=== PATIENT | female | born 1970 | race Caucasian/White ===

== ENCOUNTER 2022-09-18 09:34 | Outpatient (CLI) | payer BC, SELFPAY | END 2022-09-18 09:35 | disposition home or self-care (01) | PROVIDERS: Visit Provider Family Medicine | DX: R50.9 Fever, unspecified (principal); A69.20 Lyme disease, unspecified | CPT/HCPCS: 86618 ==

== ENCOUNTER 2022-09-20 16:17 | Emergency (ER) | payer BC, SELFPAY ==
[2022-09-20] VITALS (8 sets, daily range): BP systolic 127–138; BP diastolic 79–92; PULSE 82–92; RESP 18; TEMP 36.7; O2SAT 96–98; BMI 18.9
--- NOTE | 2022-09-20 16:59 | ED.GENADULT ---
HPI - General Adult General Chief complaint: Head Injury/Pain Stated complaint: Vomiting Time Seen by Provider: 09/20/22 16:22 History of Present Illness HPI narrative: This 52-year-old female comes in reporting headache with nausea and vomiting. She states that these symptoms started a few days ago just after starting to take doxycycline. She went into urgent care because there was a bull's-eye rash that was suspicious for Lyme disease. She does not know of any tick bite but states that she was feeling flu like symptoms. Lab results for Borrelia are pending. The patient has started on doxycycline but states that she is persistently nauseated and has not taken much food or drink. She also now has a headache. She has not been able to take any doxycycline today. Related Data Home Medications Medication Instructions Recorded Confirmed multivitamin 1 tab PO QAM 03/05/22 09/18/22 Previous Rx's Medication Instructions Recorded doxycycline monohydrate 100 mg 100 mg PO BID 14 days #28 caps 09/18/22 capsule Allergies Allergy/AdvReac Type Severity Reaction Status Date / Time penicillin G Allergy Intermediate Rash Verified 03/05/22 10:25 sulfamethazine Allergy Intermediate Rash Verified 03/05/22 10:25 Review of Systems Status of ROS: Reports: 10 or more systems reviewed and unremarkable except as noted in History and below Narrative: Constitutional: No fevers, no weight gain or loss. Eyes: No discharge. No vision changes. HENT: No congestion, no sore throat, no ear pain. Cardiovascular: No chest pain, no palpitations. Respiratory: No shortness of breath, no wheezes, no cough. Gastrointestinal: No abdominal pain, no diarrhea. Nausea and vomiting. Genitourinary: No dysuria, no hematuria. Musculoskeletal: Normal range of motion. Skin: No rashes, no pruritis. Neurological: No dizziness, weakness, sensory change, speech change. Endo/Heme/Allergies: No bruising or bleeding. No polydipsia. Pysch: no suicidality, no anxiety, no insomnia. All other systems reviewed and are negative. [facility] Medical History (Updated 09/20/22 @ 18:29 by José Miguel Pacheco MD) Lyme disease ?A69.20 - Lyme disease, unspecified (ICD-10) Acute viral laryngitis ?J04.0 - Acute laryngitis (ICD-10) Acute sinusitis ?J01.90 - Acute sinusitis, unspecified (ICD-10) Social History Smoking Status: Never smoker Do you use any of these nicotine containing products: None Second hand tobacco smoke exposure: No How often do you have a drink containing alcohol: never AUDIT-C Alcohol total score: 0 Non-prescribed substance use: denies use Exam Narrative: Exam Narrative: Constitutional: Well-developed, well-nourished . HEENT: Normocephalic, atraumatic. Neck: Normal range of motion. Nontender. Supple. Heart: Regular. No murmurs. Normal rate. Intact distal pulses. Lungs: Clear to auscultation. No chest discomfort. No wheezes, rhonchi, or rales. Abdomen: Normal bowel sounds. Nontender. No rebound tenderness. Genitalia: Deferred. Back: No midline tenderness. Normal range of motion. Extremities: Normal range of motion. No injury. Skin: Intact. No rash. Warm. No erythema or pallor. Neurologic: No altered sensation. No weakness. Alert and oriented. Psychiatric: No suicidality. No anxiety or depression. No insomnia. Nursing notes and vitals signs are reviewed. Const: Vital Signs, click to edit/add: Vital Signs - 24 hr 09/20/22 16:23 09/20/22 17:22 09/20/22 17:30 Temperature 98.1 F Pulse Rate 83 85 Pulse Rate [Right Pulse Oximeter] 91 Respiratory Rate 18 Blood Pressure Blood Pressure [Ri ght Upper Arm] 138/92 H Pulse Oximetry 98 97 97 Oxygen Delivery Me thod Room Air Room Air 09/20/22 17:31 09/20/22 17:45 Temperature Pulse Rate 85 82 Pulse Rate [Right Pulse Oximeter] Respiratory Rate Blood Pressure 133/84 Blood Pressure [Ri ght Upper Arm] Pulse Oximetry 97 97 Oxygen Delivery Me thod Course Vital Signs Vital signs: Initial Vital Signs Temperature 98.1 F 09/20/22 16:23 Temperature Source Temporal Artery Scan 09/20/22 16:23 Pulse Rate 91 09/20/22 16:23 Respiratory Rate 18 09/20/22 16:23 Blood Pressure 138/92 H 09/20/22 16:23 Blood Pressure Mean 107 H 09/20/22 16:23 Blood Pressure Position Sitting 09/20/22 16:23 Pulse Oximetry 98 09/20/22 16:23 Oxygen Delivery Method Room Air 09/20/22 16:23 Vital Signs Temperature 98.1 F 09/20/22 16:23 Pulse Rate 91 09/20/22 16:23 Respiratory Rate 18 09/20/22 16:23 Blood Pressure 138/92 H 09/20/22 16:23 Pulse Oximetry 98 09/20/22 16:23 Oxygen Delivery Method Room Air 09/20/22 16:23 Temperature 98.1 F 09/20/22 16:23 Pulse Rate 82 09/20/22 17:45 Respiratory Rate 18 09/20/22 16:23 Blood Pressure 133/84 09/20/22 17:31 Pulse Oximetry 97 09/20/22 17:45 Oxygen Delivery Method Room Air 09/20/22 17:22 Medical Decision Making MDM Narrative Medical decision making narrative: This patient comes in with headache and vomiting symptoms that began after she started taking doxycycline for presumed Lyme disease infection. An IV was established where she received a L of normal saline, Toradol 15 mg, and Zofran 4 mg. This brought sufficient relief to her symptoms. She is encouraged to continue taking doxycycline as this will treat all tick-borne diseases but when her lab results return she may wish to discontinue this medicine if lab results are negative. she is okay to be discharged home and received prescriptions for Zofran and Toradol. Lab Data Labs: Lab Results 09/20/22 Range/Units 17:15 WBC 4.05 L (4.50-11.00) K/uL RBC 3.98 L (4.00-5.20) m/uL Hgb 12.6 (12.0-16.0) gm/dL Hct 38.4 (33.0-51.0) % MCV 97 (80-100) fL MCH 32 (26-34) pg MCHC 33 (32-36) gm/dL RDW Coeff of Ian 11.7 (11.5-15.5) % Plt Count 229 (140-440) K/uL Neut % (Auto) 71.9 (42.0-72.0) % Lymph % (Auto) 17.0 L (20-44) % [place] % (Auto) 10.4 (0.0-11.0) % Eos % (Auto) 0.2 (0.0-7.0) % Baso % (Auto) 0.5 (0.0-3.0) % Neut # (Auto) 2.90 (1.7-7.0) K/uL Lymph # (Auto) 0.70 L (0.90-2.90) K/uL [place] # (Auto) 0.40 (0.00-0.90) K/UL Eos # (Auto) 0.00 (0.00-0.50) K/uL Baso # (Auto) 0.00 (0.00-0.30) K/uL Sodium 137 (135-149) mmol/L Potassium 3.6 (3.6-5.1) mmol/L Chloride 99 (96-114) mmol/L Carbon Dioxide 31 (20-32) mmol/L BUN 14 (7-30) mg/dL Creatinine 0.4 L (0.5-1.5) mg/dL Estimated Creat Clear 126.64 Estimated GFR 118 ml/min Glucose 116 H (60-115) mg/dL Calcium 9.3 (8.4-10.6) mg/dL Discharge Plan Discharge Clinical Impression: Headache, Nausea & vomiting Patient Disposition: Home, Self-Care Condition: Improved Additional Instructions: Continue current medications and use newly prescribed medicines also as needed and directed. Follow up with MD or return if worsening. Prescriptions: No Action multivitamin Tablet 1 tab PO QAM doxycycline monohydrate 100 mg capsule 100 mg PO BID 14 Days Qty: 28 0RF Follow Up/Referrals: Provider,Not a Local [Primary Care Provider] - Stand Alone Forms: MyHealth Info Instructions
[2022-09-20] MEDS: ONDANSETRON 2 MG/ML inj 4 MG IVP (17:16)
[2022-09-20] MEDS: KETOROLAC 30 MG/ML inj 15 MG IVP (17:17)
[2022-09-20] MEDS: 0.9 % SODIUM CHLORIDE 1000 ml 1,000 ML IV (17:17)
[2022-09-20 17:30] LABS: Basophils Percent Auto 0.5 % (0.0-3.0); Eosinophils Percent Auto 0.2 % (0.0-7.0); Hematocrit 38.4 % (33.0-51.0); Hemoglobin* 12.6 gm/dL (12.0-16.0); Mean Corpuscular HGB Conc 33 gm/dL (32-36); Mean Corpuscular Hemoglobin 32 pg (26-34); Mean Corpuscular Volume 97 fL (80-100); Monocytes Percent Auto 10.4 % (0.0-11.0); Neutrophils Percent Auto 71.9 % (42.0-72.0); Platelet Count* 229 K/uL (140-440); RDW Coefficient of Variation % 11.7 % (11.5-15.5); Red Blood Count 3.98 m/uL (4.00-5.20); White Blood Count* 4.05 K/uL (4.50-11.00)
[2022-09-20 17:35] LABS: Slide Review Reflex No
[2022-09-20 17:47] LABS: Chloride* 99 mmol/L (96-114)
[2022-09-20 17:48] LABS: Potassium* 3.6 mmol/L (3.6-5.1); Sodium* 137 mmol/L (135-149)
[2022-09-20 17:50] LABS: Creatinine* 0.4 mg/dL (0.5-1.5); Est. Creatinine Clearance* 126.64; Estimated Glomerular Filt Rate 118 ml/min
[2022-09-20 17:51] LABS: Blood Urea Nitrogen* 14 mg/dL (7-30); Calcium* 9.3 mg/dL (8.4-10.6); Carbon Dioxide* 31 mmol/L (20-32); Glucose* 116 mg/dL (60-115)
--- NOTE | 2022-09-20 18:16 | ED.NURSE ---
Pt brought crackers.
== END 2022-09-20 18:39 | disposition home or self-care (01) ==
PROVIDERS: Emergency Provider Emergency Medicine Emergency Medical Services
DX: R51.9 Headache, unspecified (principal); R11.2 Nausea with vomiting, unspecified
CPT/HCPCS: 36415; 80048; 85025; 96374; 96375; 99284; A9270; J1885; J2405; J7030

== ENCOUNTER 2022-10-14 12:25 | Outpatient (CLI) | payer BC, SELFPAY | END 2022-10-14 12:26 | disposition home or self-care (01) | LOC: NFLDUCREF 12:26 | PROVIDERS: PCP Family Medicine; Visit Provider Nurse Practitioner Family | DX: R21 Rash and other nonspecific skin eruption (principal); A69.20 Lyme disease, unspecified | CPT/HCPCS: 86618 ==

== ENCOUNTER 2024-09-25 08:03 | Outpatient (CLI) | payer OTHER, SELFPAY | END 2024-09-25 08:04 | disposition home or self-care (01) | LOC: NFLDREF 09-27 13:06 | PROVIDERS: PCP Family Medicine; Referring Provider Family Medicine; Visit Provider Family Medicine | DX: Z13.9 Encounter for screening, unspecified (principal); Z13.6 Encounter for screening for cardiovascular disorders | CPT/HCPCS: 80053; 80061 ==

== ENCOUNTER 2024-09-27 10:29 | Outpatient (CLI) | payer OTHER, SELFPAY ==
[2024-09-29 02:12] LABS: HPV Source Cervical/Vag
== END 2024-09-27 10:30 | disposition home or self-care (01) ==
PROVIDERS: PCP Family Medicine; Visit Provider Family Medicine
DX: Z12.4 Encounter for screening for malignant neoplasm of cervix (principal); Z11.51 Encounter for screening for human papillomavirus (HPV)
CPT/HCPCS: 87624; 87625; 88141; 88142

== ENCOUNTER 2024-10-08 07:13 | Outpatient (CLI) | payer OTHER, SELFPAY ==
--- NOTE | 2024-10-08 09:00 | P.ANES_ITS ---
Anesthesia Charges Start Date/Time Anesthesia Start Date: 10/08/24 Anesthesia Start Time: 08:04 Stop Date/Time Anesthesia Stop Date: 10/08/24 Anesthesia Stop Time: 08:58 Coding CPT Codes CPT Codes: DANIELA LWR INTST SCR COLSC - 24991 ([id number]) P1 - NORMAL HEALTHY PATIENT, QX - WALL TAPER SVJoanne W/ MED DIRECTION, QK - PRIVATE DUTY RN 2-4 CNCRNT ANEToyin PROC
--- NOTE | 2024-10-08 09:00 | W.ANESCHARGE ---
Anesthesia Charges Start Date/Time Anesthesia Start Date: 10/08/24 Anesthesia Start Time: 08:04 Stop Date/Time Anesthesia Stop Date: 10/08/24 Anesthesia Stop Time: 08:58 Coding CPT Codes CPT Codes: DANIELA LWR INTST SCR COLSC - 54133 ([id number]) P1 - NORMAL HEALTHY PATIENT, QX - WATCH REPAIRER SVJoanne W/ MED DIRECTION, QK - MANUAL WINDER 2-4 CNCRNT ANEToyin PROC
--- NOTE | 2024-10-08 09:34 | P.ANES_ITS ---
Anesthesia Charges Start Date/Time Anesthesia Start Date: 10/08/24 Anesthesia Start Time: 08:04 Stop Date/Time Anesthesia Stop Date: 10/08/24 Anesthesia Stop Time: 08:58 Coding CPT Codes CPT Codes: DANIELA LWR INTST SCR COLSC - 13482 ([id number]) P1 - NORMAL HEALTHY PATIENT, QK - CLEARANCE DIVER 2-4 CNCRNT ANES PROC, QX - FOOD HANDLER SVC W/ MED DIRECTION
--- NOTE | 2024-10-08 09:34 | W.ANESCHARGE ---
Anesthesia Charges Start Date/Time Anesthesia Start Date: 10/08/24 Anesthesia Start Time: 08:04 Stop Date/Time Anesthesia Stop Date: 10/08/24 Anesthesia Stop Time: 08:58 Coding CPT Codes CPT Codes: DANIELA LWR INTST SCR COLSC - 39435 ([id number]) P1 - NORMAL HEALTHY PATIENT, QK - CONSTRUCTION EQUIPMENT MECHANIC HELPER 2-4 CNCRNT ANES PROC, QX - SOFTWARE DEVELOPMENT PROJECT MANAGER SVC W/ MED DIRECTION
== END 2024-10-08 07:14 | disposition home or self-care (01) ==
LOC: OP CLINIC 07:14
PROVIDERS: PCP Family Medicine; Visit Provider Surgery
DX: Z12.11 Encounter for screening for malignant neoplasm of colon (principal); Z86.0100 Personal history of colon polyps, unspecified; D12.1 Benign neoplasm of appendix; D12.3 Benign neoplasm of transverse colon; D12.7 Benign neoplasm of rectosigmoid junction; K64.8 Other hemorrhoids
CPT/HCPCS: 00812; 45385; 88305; J2704

== ENCOUNTER 2024-12-19 13:30 | Outpatient (CLI) | payer OTHER, SELFPAY ==
--- NOTE | 2024-12-19 13:40 | CRLHL7_ITS ---
For Patients: As a result of the Century Cures Act, medical imaging exams and procedure reports are released immediately into your electronic medical record. You may view this report before your referring provider. If you have questions, please contact your health care provider. INDICATION: BILATERAL SCREENING MAMMOGRAM W/IMPLANTS, ASYMPTOMATIC 68 Y/O FEMALE COMPARISON: 07/30/2018, 01/29/2018, 01/24/2018 TECHNIQUE: Digital mammogram in CC and MLO projections including computer-aided detection (CAD) and tomosynthesis. BREAST COMPOSITION: There are scattered areas of fibroglandular density. FINDINGS: No suspicious findings. ASSESSMENT: BI-RADS 2 Benign RECOMMENDATION: Annual screening mammogram. A lay language report of this examination will be provided to the patient. Dictated by: Drake Burns MD @ 12/20/2024 09:18:22 (Electronically Signed)
== END 2024-12-19 13:31 | disposition home or self-care (01) ==
LOC: MAMMO 13:31
PROVIDERS: PCP Family Medicine; Visit Provider Family Medicine
DX: Z12.31 Encounter for screening mammogram for malignant neoplasm of breast (principal); Z98.82 Breast implant status
CPT/HCPCS: 77063; 77067

== ENCOUNTER 2025-02-12 09:30 | Outpatient (RCR) | payer OTHER, SELFPAY | END 2025-02-12 10:05 | disposition home or self-care (01) | PROVIDERS: PCP Family Medicine; Visit Provider Nurse Practitioner Family | DX: M79.645 Pain in left finger(s) (principal); Z51.89 Encounter for other specified aftercare | CPT/HCPCS: 97110; 97140; 97165; X5282 ==